=== PATIENT | female | born 1950 | race Asian ===

== ENCOUNTER 2022-08-03 18:47 | Inpatient (IN) | payer MEDICARE, OTHER ==
[~2022-08-03] VITALS: Ht 160 cm; Wt 70.3 kg
--- NOTE | 2022-08-03 19:10 | NUR ---
JAS MELCHOR [facility], PSYCH EVAL PRIOR TO GPS ADMIT PER REPORT, REFUSING MEDICATION AND PARANOIA. PLACED ON BED, AAOX4, CALM- COOPERATIVE.
[2022-08-03] MEDS ORDERED: METF-881 PO (19:37)
[2022-08-03] MEDS ORDERED: MELA3TAB41 PO (19:37)
[2022-08-03] MEDS ORDERED: GLIM4TAB37 PO (19:37)
[2022-08-03] MEDS ORDERED: METO25TA6 PO (19:37)
[2022-08-03] MEDS ORDERED: ATOR80TA PO (19:37)
[2022-08-03] MEDS ORDERED: RISP1TAB97 PO (19:37)
[2022-08-03] MEDS ORDERED: APIX5TAB PO (19:37)
--- NOTE | 2022-08-03 19:48 | NUR ---
ENTRY LEVEL RECRUITER AT BEDSIDE
--- NOTE | 2022-08-03 20:18 | NUR ---
SWAB FOR COVID19 SENT TO LAB
[2022-08-03 20:23] LABS: BASOPHILS # (AUTO) 0.1 K/uL (0.0-0.2); BASOPHILS % (AUTO) 0.9 % (0.0-2.0); EOSINOPHILS % (AUTO) 2.3 % (0.0-6.0); HEMATOCRIT 45 % (33-45); HEMOGLOBIN 15.1 g/dL (11.5-14.8); LYMPHOCYTES # (AUTO) 1.8 K/uL (0.8-4.8); LYMPHOCYTES % (AUTO) 29.8 % (20.0-44.0); MEAN CORPUSCULAR HGB CONC 34 g/dl (31.0-36.0); MEAN CORPUSCULAR VOLUME 84 fL (82-100); MONOCYTES # (AUTO) 0.4 K/uL (0.1-1.30); MONOCYTES % (AUTO) 6.6 % (2.0-12.0); NEUTROPHILS # (AUTO) 3.6 K/uL (1.8-8.9); NEUTROPHILS % (AUTO) 60.4 % (43.0-81.0); PLATELET COUNT (AUTO) 194 K/uL (150-450); RED BLOOD CELL COUNT(AUTO) 5.33 MIL/uL (4.0-5.2); WHITE BLOOD COUNT (AUTO) 5.9 K/uL (4.3-11.0)
[2022-08-03 20:30] LABS: CALCIUM, SERUM 9.1 mg/dL (8.5-10.1); CARBON DIOXIDE 28 mmol/L (21-32); CHLORIDE 104 mmol/L (98-107); CREATININE 0.7 mg/dL (0.6-1.3); GLUCOSE 159 mg/dL (74-106); POTASSIUM 3.7 mmol/L (3.5-5.1); SODIUM SERUM 138 mmol/L (136-145); UREA NITROGEN, BLOOD 20 mg/dL (7-18)
[2022-08-03 20:36] LABS: ALANINE AMINOTRANSFERASE 12 U/L (12-78); ALCOHOL, BLOOD < 3 mg/dL (0-0); ALKALINE PHOSPHATASE 100 U/L (46-116); ASPARTATE AMINOTRANSFERASE 14 U/L (15-37); BILIRUBIN,DIRECT 0.1 mg/dL (0.0-0.2); BILIRUBIN,TOTAL 0.4 mg/dL (0.2-1.0); TOTAL PROTEIN, SERUM 7.7 g/dL (6.4-8.2)
[2022-08-03 20:39] LABS: ACETAMINOPHEN 0 ug/ml (10-30)
--- NOTE | 2022-08-03 20:55 | NUR ---
URINE COLLECTED SENT TO LAB
[2022-08-03] MEDS ORDERED: CLONIDINE HCL 0.1 MG TABLET ONE (21:11)
--- NOTE | 2022-08-03 21:14 | NUR ---
ELIER - CRISIS TEAM PAGED FOR EVAL.
[2022-08-03] MEDS ORDERED: CLONIDINE HCL 0.1 MG TABLET PO ONE (21:30)
[2022-08-03 22:27] LABS: BILIRUBIN,URINE NEGATIVE (NEGATIVE); COLOR,URINE YELLOW (YELLOW); LEUKOCYTE ESTERASE ,URINE NEGATIVE (NEGATIVE); NITRITE, URINE NEGATIVE (NEGATIVE); PROTEIN,URINE NEGATIVE (NEGATIVE); UGLUCOSE NEGATIVE (NEGATIVE); UROBILINOGEN,URINE 0.2 EU/dL (0.2)
[2022-08-03 22:33] LABS: BACTERIA,URINE Rare /HPF (None Seen); RBC,URINE 0-2 /HPF (0-2); SQUAMOUS EPITHELIAL CELL,UR Few /HPF (None Seen); WBC,URINE 0-2 /HPF (0-3)
--- NOTE | 2022-08-04 00:11 | NUR ---
GPS 219-B
--- NOTE | 2022-08-04 00:30 | NUR ---
REPORT GIVEN TO JUANY MARCELO FOR CONTINUATION OF CARE.
--- NOTE | 2022-08-04 00:37 | NUR ---
PATIENT TRANSFERRED TO 219 IN STABLE CONDITION.
[2022-08-04] MEDS ORDERED: clonazePAM 0.5 MG TABLET PO PRN (02:00)
[2022-08-04] MEDS ORDERED: ACETAMINOPHEN 325 MG TABLET PO PRN (02:00)
[2022-08-04] MEDS ORDERED: MAGNESIUM HYDROXIDE 30 ML UDC PO PRN (02:00)
[2022-08-04] MEDS ORDERED: BLOOD SUGAR DIAGNOSTIC 1 EACH STRIP IN ONE (02:00)
[2022-08-04] MEDS ORDERED: TEMAZEPAM 7.5 MG CAPSULE PO PRN (02:00)
[2022-08-04] MEDS ORDERED: MAG HYDROX/AL HYDROX/SIMETH 30 ML UDC PO PRN (02:00)
[2022-08-04 02:16] VITALS: BP 135/72
[2022-08-04] MEDS ORDERED: DEXTROSE 50%-WATER 50 ML DISP.SYRIN IV PRN (02:30)
--- NOTE | 2022-08-04 03:00 | NUR ---
RN NOTES : ADMISSION NOTES: ADMITTED THIS 71Y/O FEMALE PATIENT ADMIT FROM SOH /ED INTIALLY FROM HOME . ADMITTED TO 5150 HOLD , DTS, GD, PER HOLD DUE TO CONFUSION AND SHE REFUSES TO TAKE THE MEDS, BECAUSE SHE CLAIMS SOMEONE TAMPERED WITH THEM WHICH IS NOT TRUE , UPON FACE TO FACE ASSESSMENT PATIENT IS A&O X 3 EASILY AGITATED,PARANOID ,FLAT BLUNTED AFFECT , DISORGNIZED, DISHELVED, GUARDED ,POOR DECISION MAKING, DENIES SI /HI AT THIS TIME, PT. IS POOR HISTORIAN, POOR INSIGHT ,POOR JUDGEMENT, PT. REFUSED TO SIGNED ADMISSION CONSENT PAPERS, DUE TO TIRED,AND REDFUSED SKIN ASSESSMENT AND PHOTS TAKEN , ENCOURAGED X3 BUT PT. STRONGLY REFUSED ,PER PT. MY SKIN IS FINE , BOTH MD AWARE AND NOTIFIED OF THE ADMISSION, BELONGINGS CONTRABAND WERE DONE , PT. RIGHTS DISCUSS BY V GROOVE CUTTER , PROVIDE THE PT. WITH HANDBOOK, AND MEDICATIONS GUIDE, ENVIRONMENTAL SAFETY CHECK DONE, ENCOURAGED PT. VERBALIZED ANY FEELING CONCERN TO STAFF, ORIENT TO UNIT POLICY, NO ACUTE DISTRESS NOTED,VITAL SIGNS WNL ,DENIES ANY PAIN AT THIS TIME,WILL CONTINUE TO MONITOR FOR Q15 SAFETY AND BEHAVIOR.
--- NOTE | 2022-08-04 03:15 | NUR ---
RN NOTES: REFUSED SKIN ASESSMENT PT. REFUSED SKIN ASSESSMENT AND PHOTS TAKEN , ENCOURAGED X3 BUT PT. STRONGLY REFUSED ,PER PT. MY SKIN IS FINE.
--- NOTE | 2022-08-04 06:38 | NUR ---
RN NOTES: CALLED FAMILY MEMEBER AND LEFT VOICE MAIL MESSAGES TO AVIS WILLAM (SPOUSE) AT [phone] , REGARDING ABOUT PT. ADMITTED IN GPS.
--- NOTE | 2022-08-04 07:59 | NUR ---
GPS/RN ACCUCHECK WITH DC=589. PT REFUSED INSULIN COVERAGE OFFERED X3
[2022-08-04 08:00] VITALS: BP 129/77
[2022-08-04] MEDS: BLOOD SUGAR DIAGNOSTIC 1 EACH STRIP IN SCH ×4 (08:17→21:34)
[2022-08-04] MEDS: risperiDONE 1 MG TABLET PO SCH (10:38)
--- NOTE | 2022-08-04 13:15 | NUR ---
GPS/RN PT REFUSED ACCUCHECK FOR 1200 OFFERED X3
[2022-08-04] MEDS: GLIMEPIRIDE 4 MG TABLET PO SCH (15:50)
[2022-08-04] MEDS: METFORMIN XR 500 MG TAB.SR.24H PO SCH (15:50)
[2022-08-04 16:00] VITALS: BP 136/84
[2022-08-04] MEDS: METOPROLOL TARTRATE 25 MG TABLET PO SCH (16:58)
[2022-08-04] MEDS: APIXABAN 5 MG TABLET PO SCH (17:00)
--- NOTE | 2022-08-04 18:30 | NUR ---
GPS/RN ACCUCHECK AT 1730 WITH QP=105. PT REFUSED INSULIN COVERAGE. PT STATED THAT SHE DOES NOT HAVE ALLERGY TO LIPITOR AND WOULD LIKE TO TAKE IT. PHARMACY MADE AWARE, ALLERGY PROFILE WAS UPDATED
[2022-08-04 20:00] VITALS: BP 158/75
--- NOTE | 2022-08-04 20:23 | NUR ---
NURSING NOTES: RECEIVED PATIENT IN BED AWAKE. PATIENT APPEARS GUARDED, DISORGANIZED AND GUARDED. PLEASANT ON APPROACH. COOPERATIVE. DENIES SI/HI. WILL CONTINUE TO MONITOR FOR SAFETY AND BEHAVIOR.
[2022-08-04] MEDS: ATORVASTATIN 40 MG TABLET PO SCH ×2 (21:25→21:38)
[2022-08-04] MEDS: INSULIN REGULAR, HUMAN 100 UNIT/ML 3 ML VIAL SQ PRN (21:37)
[2022-08-05 07:10] LABS: CALCIUM, SERUM 8.5 mg/dL (8.5-10.1); CREATININE 0.7 mg/dL (0.6-1.3); POTASSIUM 3.8 mmol/L (3.5-5.1)
[2022-08-05 07:54] LABS: BASOPHILS % (AUTO) 0.9 % (0.0-2.0); HEMATOCRIT 42 % (33-45); HEMOGLOBIN 13.9 g/dL (11.5-14.8); LYMPHOCYTES # (AUTO) 1.8 K/uL (0.8-4.8); LYMPHOCYTES % (AUTO) 34.1 % (20.0-44.0); MEAN CORPUSCULAR HGB CONC 33 g/dl (31.0-36.0); MEAN CORPUSCULAR VOLUME 85 fL (82-100); MONOCYTES # (AUTO) 0.4 K/uL (0.1-1.30); NEUTROPHILS # (AUTO) 2.8 K/uL (1.8-8.9); PLATELET COUNT (AUTO) 178 K/uL (150-450); RED BLOOD CELL COUNT(AUTO) 4.94 MIL/uL (4.0-5.2); WHITE BLOOD COUNT (AUTO) 5.2 K/uL (4.3-11.0)
[2022-08-05 08:00] VITALS: BP 153/112
[2022-08-05] MEDS: BLOOD SUGAR DIAGNOSTIC 1 EACH STRIP IN SCH ×3 (08:00→21:56)
--- NOTE | 2022-08-05 08:00 | NUR ---
GPS/RN ACCUCHECK AT WITH CJ=004. PT REFUSED INSULIN COVERAGE
[2022-08-05] MEDS: METFORMIN XR 500 MG TAB.SR.24H PO SCH (08:04)
[2022-08-05] MEDS: METOPROLOL TARTRATE 25 MG TABLET PO SCH ×2 (08:04→17:00)
[2022-08-05] MEDS: risperiDONE 1 MG TABLET PO SCH (08:04)
[2022-08-05] MEDS: APIXABAN 5 MG TABLET PO SCH ×2 (08:21→17:01)
[2022-08-05] MEDS: GLIMEPIRIDE 4 MG TABLET PO SCH (12:49)
[2022-08-05 16:00] VITALS: BP 128/85
[2022-08-05 20:37] VITALS: BP 143/89
[2022-08-05] MEDS: ATORVASTATIN 40 MG TABLET PO SCH (21:51)
[2022-08-05] MEDS: INSULIN REGULAR, HUMAN 100 UNIT/ML 3 ML VIAL SQ PRN (21:56)
--- NOTE | 2022-08-06 00:51 | NUR ---
Pt complained about medication Lipitor. Pt states, " The medication Lipitor made my left arm numb but its ok now.". Pt vital signs WNL and able to move left arm up and down and able to squeeze with left hand firmly. No s/s of any kind of distress. No s/s of pain or discomfort. Will continue to monitor. Will endorse to next shift.
[2022-08-06] MEDS: BLOOD SUGAR DIAGNOSTIC 1 EACH STRIP IN SCH ×4 (07:51→21:48)
[2022-08-06 08:00] VITALS: BP 150/85
[2022-08-06] MEDS: METFORMIN XR 500 MG TAB.SR.24H PO SCH (08:24)
[2022-08-06] MEDS: METOPROLOL TARTRATE 25 MG TABLET PO SCH ×2 (08:24→16:41)
[2022-08-06] MEDS: risperiDONE 1 MG TABLET PO SCH (08:24)
[2022-08-06] MEDS: APIXABAN 5 MG TABLET PO SCH ×2 (08:31→16:42)
[2022-08-06] MEDS: GLIMEPIRIDE 4 MG TABLET PO SCH (08:32)
[2022-08-06] MEDS: INSULIN REGULAR, HUMAN 100 UNIT/ML 3 ML VIAL SQ PRN ×3 (08:56→22:07)
--- NOTE | 2022-08-06 10:05 | NUR ---
CHAPIS Initial Discharge Plan: Patient reported that she lives with her Koby ([phone]) located at [address] [place], [place] [address] [address]; ([phone]). Pt would want to return back home when ready for discharge. SW will contact pt's family. SW will work with pt, family, and treatment team to help coordinate appropriate discharge.
--- NOTE | 2022-08-06 10:06 | NUR ---
CHAPIS Clinical Note: Pt placed on a 5150 hold for danger to herself and GD. Pt was paranoid and delusional at home not taking her medications and stated that she had a stroke because of her medications. Patient reported that she lives with her Koby ([phone]) located at [address] [place] [address]; ([phone]). Pt would want to return back home when ready for discharge. CHAPIS will contact pt's family.
--- NOTE | 2022-08-06 10:06 | NUR ---
Treatment Plan: Pt refused to sign treatment plan and was suspicious.
--- NOTE | 2022-08-06 11:40 | NUR ---
CHAPIS Family Contact: SW attempted to contact Koby pt's ([phone]) and educated on pt's 5150 hold and educated on 5250 hold. was unhappy and wants pt to be discharged 08/07 and requested to speak to the psychiatrist. SW notified Dr. Romero. Plan: Pt would return back home with family when stable.
[2022-08-06 16:00] VITALS: BP 130/75
--- NOTE | 2022-08-06 16:31 | NUR ---
RN-CO: DR ACKERMAN AND DR COKER NOTIFIED THAT 72 HOLD WILL BE EXPIRING.:
--- NOTE | 2022-08-06 18:50 | NUR ---
NURSE NOTE: PT MED COMPLIANT, BUT REFUSED INSULIN. PER PT SHE DOES NOT TAKE INSULIN AT HOME.
[2022-08-06 21:17] VITALS: BP 154/90
[2022-08-06] MEDS: ATORVASTATIN 40 MG TABLET PO SCH ×2 (21:48→22:00)
--- NOTE | 2022-08-06 22:11 | NUR ---
PATIENT REFUSED INSULIN REGULAR 2 UNITS AND ATORVASTATIN, RISK VS BENEFITS EXPLAINED, VERBALIZED UNDERSTANDING AND STILL REFUSED, RESIDENT STATED "I NEVER TAKE INSULIN," "I DO NOT WANT TO TAKE LIPITOR BECAUSE I AM IN FEAR OF GETTING A STROKE IF I DO, MY HAND AND FACE WILL GET NUMB IF I TAKE IT." "I DO NOT WANT TO TAKE IT." PO FLUIDS OFFERED AND TAKEN WELL. OFFERED TIMES THREE.
--- NOTE | 2022-08-07 06:41 | NUR ---
CLOSING NOTE: SLEEPING IN BED. UNLABORED BREATHING. MAKAYLA OGDEN/HI. Addendum: 08/07/22 at 0643 by JERMAIN العراقي RN ABLE TO SLEEP WELL DURING NIGHT.
[2022-08-07] MEDS: BLOOD SUGAR DIAGNOSTIC 1 EACH STRIP IN SCH (07:42)
[2022-08-07 08:00] VITALS: BP 156/88
--- NOTE | 2022-08-07 08:00 | NUR ---
RN-NOTES PATIENT BS WAS 150MG/DL,REFUSED 2 UNITS OF R INSULIN COVERAGE, STATED" I'M ON METFORMIN SO I DON'T NEED INSULIN" ,OFFERED X3 .
--- NOTE | 2022-08-07 08:04 | NUR ---
SW Discharge Note: Patient will discharge back home located at [address] [place] [address]; ([phone]). Patients Koby ([phone]) will slate picker pt between 10-11AM. Pt is alert and oriented x1. Pt denies suicidal or homicidal ideation. Pt denies visual/auditory hallucinations. Pt will follow up with (Optometry Assistant) Dr. Richard located at [address] [facility], [address], [place] [address]; ([phone]). Pt will follow up with (Psychiatrist) Dr. Arguelles located at [address] [facility] [address], [place] [address]; ([phone]) at 1:30PM. Pt presents with euthymic mood and congruent affect.
[2022-08-07 08:22] VITALS: BP 156/88
[2022-08-07] MEDS: METOPROLOL TARTRATE 25 MG TABLET PO SCH (08:22)
[2022-08-07] MEDS: risperiDONE 1 MG TABLET PO SCH (08:22)
[2022-08-07] MEDS: METFORMIN XR 500 MG TAB.SR.24H PO SCH (08:22)
[2022-08-07] MEDS: APIXABAN 5 MG TABLET PO SCH (08:24)
[2022-08-07] MEDS: GLIMEPIRIDE 4 MG TABLET PO SCH (08:25)
--- NOTE | 2022-08-07 10:35 | NUR ---
RN-NOTES PATIENT HAD A DISCHARGE ORDER FROM EMELYN CHAVES ( PSYCHIATRIST) DR. VIGIL ( MOTIVATIONAL SPEAKER) MEDICALLY CLEARED PATIENT FOR DISCHARGE. PATIENT WAS DISCHARGE TO HOME WITH . PATIENT SIGN ALL DISCHARGE PAPERS AND RX WAS REVIEWED WITH THE PATIENT WITH UNDERSTANDING. INSTRUCTED PATIENT TO FOLLOW UP WITH PCP IN A WEEK OR NEEDED, AND GO TO THE NEAREST ER ROOM OR CALL 911 INCASE OF EMERGENCY.PATIENT A/O X4 DID NOT VERBALIZE SI/HI,DENIES VISUAL/AUDITORY HALLUCINATIONS AT THE TIME OF DISCHARGE.PATIENT WAS PICKUP BY DTR TALAT AND AVIS VIA PRIVATE CAR. PATIENT LEFT THE UNIT IN STABLE CONDITION A/O X4 AMBULATORY WITH STEADY GAIT. NEGATIVE CHECKER ASSISTED PATIENT TO THE LOBBY FOR SAFETY. PATIENT LEFT THE UNIT WITH ALL HER BELONGINGS.
== END 2022-08-07 10:35 | disposition home or self-care (01) | DRG 885 ==
LOC: ER 18:50 → GPS 08-04 00:25
PROVIDERS: ADMIT Psychiatry & Neurology Psychiatry; ATTEND Nurse Practitioner Acute Care
DX: F20.9 Schizophrenia, unspecified (principal); N17.9 Acute kidney failure, unspecified; E11.65 Type 2 diabetes mellitus with hyperglycemia; F29 Unspecified psychosis not due to a substance or known physiological condition; E78.5 Hyperlipidemia, unspecified; Z86.73 Personal history of transient ischemic attack (TIA), and cerebral infarction without residual deficits; I10 Essential (primary) hypertension; Z79.01 Long term (current) use of anticoagulants; Z20.822 Contact with and (suspected) exposure to COVID-19; Z79.84 Long term (current) use of oral hypoglycemic drugs; Z79.899 Other long term (current) drug therapy; Z91.199 Patient's noncompliance with other medical treatment and regimen due to unspecified reason; I48.91 Unspecified atrial fibrillation
CPT/HCPCS: 36415; 80048-TC; 80061-TC; 80076-TC; 81001; 82962-TC; 85025-TC; 87081-TC; 97530-TC; C9803; G0480; J1815